=== PATIENT | female | born 1975 | race Caucasian/White ===

== ENCOUNTER 2017-05-08 13:17 | Emergency (ER) | payer SELFPAY ==
[~2017-05-08] VITALS: Ht 177.8 cm; Wt 72.0 kg
[2017-05-08] MEDS ORDERED: SODIUM CHLORIDE FLUSH 10ML SYR IVF ONE (14:00)
[2017-05-08] MEDS ORDERED: SODIUM CHLORIDE 0.9% 1,000ML IVBOLUS ONE (14:00)
[2017-05-08] MEDS ORDERED: ONDANSETRON 2MG/ML, 2ML IVPush ONE (14:00)
[2017-05-08 14:02] LABS: HEMATOCRIT 50.3 % (34.6-47.8); HEMOGLOBIN 17.4 g/dL (11.7-16.4); WHITE BLOOD COUNT 7.6 x10^3/uL (3.4-10)
[2017-05-08 14:13] LABS: ASPARTATE AMINO TRANSFERASE 27 U/L (15-37); BLOOD UREA NITROGEN 10 mg/dL (7-18)
[2017-05-08] MEDS ORDERED: ONDANSETRON 2MG/ML, 2ML ONE (14:13)
[2017-05-08 15:35] VITALS: BP 148/89
== END 2017-05-08 15:39 | disposition left against medical advice (07) ==
LOC: ED 15:30
DX: E86.0 Dehydration (principal); R11.2 Nausea with vomiting, unspecified; Z88.0 Allergy status to penicillin; Z88.6 Allergy status to analgesic agent
CPT/HCPCS: 36415; 80053; 81001; 83690; 84703; 85025; 87086; 96361; 96374; 99284; J2405; J7030

== ENCOUNTER 2017-06-03 17:29 | Inpatient (IN) | payer MEDICAID, OTHER ==
[~2017-06-03] VITALS: Ht 177.8 cm; Wt 75.3 kg
[2017-06-03] MEDS ORDERED: ALBUTEROL SULFATE 2.5 MG/3 ML ONE (17:56)
[2017-06-03] MEDS ORDERED: SODIUM CHLORIDE FLUSH 10ML SYR IVF ONE (18:00)
[2017-06-03] MEDS ORDERED: ALBUTEROL SULFATE 2.5 MG/3 ML NPPB ONE (18:00)
[2017-06-03 18:10] LABS: HEMATOCRIT 45.1 % (34.6-47.8); HEMOGLOBIN 15.3 g/dL (11.7-16.4); WHITE BLOOD COUNT 13.4 x10^3/uL (3.4-10)
[2017-06-03 18:23] LABS: BLOOD UREA NITROGEN 5 mg/dL (7-18)
[2017-06-03] MEDS ORDERED: AZITHROMYCIN 500 MG in SODIUM CHLORIDE 0.9% 250 ML IVPB ONE (18:30)
[2017-06-03] MEDS ORDERED: CEFTRIAXONE PMX 1GM/50ML 50 ML IVPB ONE (18:30)
[2017-06-03 18:44] LABS: IS PT STATUS REG ER OR PRE ER? YES
[2017-06-03] MEDS ORDERED: CEFTRIAXONE PMX 1GM/50ML 50 ML ONE (18:47)
[2017-06-03] MEDS ORDERED: ONDANSETRON 2MG/ML, 2ML ONE (19:44)
[2017-06-03] MEDS ORDERED: ONDANSETRON 2MG/ML, 2ML IVPush ONE (20:00)
[2017-06-03] MEDS ORDERED: OMNIPAQUE 350 MG/ML, 100ML BOTTLE ONE (20:17)
[2017-06-03] MEDS ORDERED: SODIUM CHLORIDE 0.9% 1,000 ML IV ONE (20:42)
[2017-06-03] MEDS ORDERED: morphine SULFATE 10 MG/ML, 1ML IVPush PRN (21:00)
[2017-06-03] MEDS ORDERED: NS + 20MEQ KCL 1,000 ML IV SCH (21:00)
[2017-06-03] MEDS ORDERED: POLYETHYLENE GLYCOL 17 GM PACKET PO PRN (21:00)
[2017-06-03] MEDS ORDERED: ACETAMINOPHEN 325 MG TABLET PO PRN (21:00)
[2017-06-03] MEDS ORDERED: SODIUM CHLORIDE FLUSH 10ML SYR IVF PRN (21:00)
[2017-06-03] MEDS ORDERED: DOCUSATE 100 MG CAPSULE PO PRN (21:00)
[2017-06-03] MEDS ORDERED: HYDROcodone/APAP 5/325 TABLET PO PRN (21:00)
[2017-06-03] MEDS: CEFTRIAXONE 1,000 MG in SODIUM CHLORIDE 0.9% 50 ML IV SCH (21:11)
[2017-06-03] MEDS ORDERED: GABA600T2 PO (22:07)
[2017-06-03 22:46] VITALS: BP 119/76
[2017-06-03 22:50] VITALS: BP 119/76
[2017-06-03] MEDS: NICOTINE 14MG/24 HR PATCH.TD24 TD SCH (23:30)
[2017-06-03] MEDS: DOXYCYCLINE 100 MG in DEXTROSE 5% 250 ML IV SCH (23:38)
[2017-06-03] MEDS: GUAIFENESIN/DM 200-20MG, 10ML UDC PO PRN (23:39)
[2017-06-03] MEDS: ENOXAPARIN 40 MG/0.4 ML SQ SCH (23:39)
[2017-06-04] MEDS ORDERED: ALBUTEROL SULFATE 2.5 MG/3 ML NPPB PRN (00:30)
[2017-06-04] MEDS: methylPREDNISolone SOD SUCC 125 MG/2 ML IVPush SCH ×3 (02:17→18:38)
[2017-06-04 02:27] LABS: IS PT STATUS REG ER OR PRE ER? NO
[2017-06-04 03:21] VITALS: BP 121/82
[2017-06-04 06:35] LABS: HEMATOCRIT 40.8 % (34.6-47.8)
[2017-06-04 06:50] LABS: BLOOD UREA NITROGEN 4 mg/dL (7-18)
[2017-06-04 06:54] LABS: IS PT STATUS REG ER OR PRE ER? NO
[2017-06-04] MEDS: ALBUTEROL/IPRATROPIUM 2.5MG/0.5MG, 3 ML NPPB SCH ×4 (07:20→20:35)
[2017-06-04 08:17] VITALS: BP 119/80
[2017-06-04] MEDS: ASPIRIN 325 MG TABLET EC PO SCH (10:22)
[2017-06-04] MEDS: DOXYCYCLINE 100 MG in DEXTROSE 5% 250 ML IV SCH ×2 (11:52→23:09)
[2017-06-04 13:04] VITALS: BP 134/92
[2017-06-04] MEDS ORDERED: FUROSEMIDE 20 MG/2 ML IV ONE (16:00)
[2017-06-04 17:28] LABS: RAPID INFLUENZA A Negative (Negative); RAPID INFLUENZA B Negative (Negative)
[2017-06-04 18:09] VITALS: BP 134/89
[2017-06-04] MEDS: GUAIFENESIN/DM 200-20MG, 10ML UDC PO PRN (18:42)
[2017-06-04] MEDS: ONDANSETRON 2MG/ML, 2ML IVPush PRN (18:42)
[2017-06-04 19:29] VITALS: BP 117/80
[2017-06-04] MEDS: CEFTRIAXONE 1,000 MG in SODIUM CHLORIDE 0.9% 50 ML IV SCH (21:14)
[2017-06-04] MEDS: NICOTINE 14MG/24 HR PATCH.TD24 TD SCH (23:09)
[2017-06-04] MEDS: ENOXAPARIN 40 MG/0.4 ML SQ SCH (23:09)
[2017-06-05 00:34] VITALS: BP 134/87
[2017-06-05] MEDS: ONDANSETRON 2MG/ML, 2ML IVPush PRN ×3 (00:36→23:59)
[2017-06-05] MEDS: methylPREDNISolone SOD SUCC 125 MG/2 ML IVPush SCH ×3 (01:29→21:26)
[2017-06-05 05:30] LABS: HEMATOCRIT 39.6 % (34.6-47.8); HEMOGLOBIN 13.5 g/dL (11.7-16.4); WHITE BLOOD COUNT 15.2 x10^3/uL (3.4-10)
[2017-06-05 05:51] LABS: BLOOD UREA NITROGEN 7 mg/dL (7-18)
[2017-06-05] MEDS: ALBUTEROL/IPRATROPIUM 2.5MG/0.5MG, 3 ML NPPB SCH ×4 (07:00→19:21)
[2017-06-05 08:41] VITALS: BP 125/81
[2017-06-05] MEDS: ASPIRIN 325 MG TABLET EC PO SCH (08:53)
[2017-06-05] MEDS: DOXYCYCLINE 100 MG in DEXTROSE 5% 250 ML IV SCH ×2 (11:30→23:59)
[2017-06-05 13:20] VITALS: BP 126/83
[2017-06-05] MEDS: GUAIFENESIN/DM 200-20MG, 10ML UDC PO PRN ×2 (15:18→21:38)
[2017-06-05 21:15] VITALS: BP 142/87
[2017-06-05] MEDS: GABAPENTIN 300 MG CAPSULE PO SCH (21:26)
[2017-06-05] MEDS: ENOXAPARIN 40 MG/0.4 ML SQ SCH (21:27)
[2017-06-05] MEDS: CEFTRIAXONE PMX 1GM/50ML 50 ML IV SCH (21:27)
[2017-06-05] MEDS: NICOTINE 14MG/24 HR PATCH.TD24 TD SCH (22:59)
[2017-06-06 01:41] VITALS: BP 131/86
[2017-06-06] MEDS: GUAIFENESIN/DM 200-20MG, 10ML UDC PO PRN ×2 (04:20→20:59)
[2017-06-06 04:31] LABS: HEMATOCRIT 40.6 % (34.6-47.8); HEMOGLOBIN 13.6 g/dL (11.7-16.4); WHITE BLOOD COUNT 12.5 x10^3/uL (3.4-10)
[2017-06-06 04:38] LABS: BLOOD UREA NITROGEN 12 mg/dL (7-18)
[2017-06-06 07:11] VITALS: BP 145/89
[2017-06-06] MEDS: ALBUTEROL/IPRATROPIUM 2.5MG/0.5MG, 3 ML NPPB SCH ×4 (07:14→19:32)
[2017-06-06] MEDS: GABAPENTIN 300 MG CAPSULE PO SCH ×3 (08:26→20:59)
[2017-06-06] MEDS: ONDANSETRON 2MG/ML, 2ML IVPush PRN ×2 (08:26→23:55)
[2017-06-06] MEDS: ASPIRIN 325 MG TABLET EC PO SCH (08:26)
[2017-06-06] MEDS: methylPREDNISolone SOD SUCC 125 MG/2 ML IVPush SCH ×2 (08:26→21:00)
[2017-06-06 12:46] VITALS: BP 130/84
[2017-06-06] MEDS: DOXYCYCLINE 100 MG in DEXTROSE 5% 250 ML IV SCH ×2 (13:08→23:55)
[2017-06-06] MEDS: CEFTRIAXONE PMX 1GM/50ML 50 ML IV SCH (20:59)
[2017-06-06] MEDS: ENOXAPARIN 40 MG/0.4 ML SQ SCH (21:00)
[2017-06-06 21:23] VITALS: BP 130/84
[2017-06-06] MEDS: NICOTINE 14MG/24 HR PATCH.TD24 TD SCH (21:53)
[2017-06-07 00:18] VITALS: BP 131/79
[2017-06-07 05:10] LABS: BLOOD UREA NITROGEN 13 mg/dL (7-18)
[2017-06-07 05:20] LABS: HEMATOCRIT 40.5 % (34.6-47.8); HEMOGLOBIN 13.6 g/dL (11.7-16.4); WHITE BLOOD COUNT 8.2 x10^3/uL (3.4-10)
[2017-06-07] MEDS: ALBUTEROL/IPRATROPIUM 2.5MG/0.5MG, 3 ML NPPB SCH ×3 (07:00→14:46)
[2017-06-07 07:10] VITALS: BP 152/98
[2017-06-07] MEDS: ASPIRIN 325 MG TABLET EC PO SCH (09:43)
[2017-06-07] MEDS: GABAPENTIN 300 MG CAPSULE PO SCH (09:44)
[2017-06-07] MEDS: DOXYCYCLINE 100 MG in DEXTROSE 5% 250 ML IV SCH (11:47)
[2017-06-07 13:35] VITALS: BP 144/89
[2017-06-07] MEDS: GUAIFENESIN/DM 200-20MG, 10ML UDC PO PRN (13:40)
[2017-06-07] MEDS ORDERED: PNEUMOCOCCAL VACC.PER PHARMACY IM ONE (14:30)
[2017-06-07] MEDS ORDERED: PNEUMOCOCCAL 23 VACCINE IM-VACC ONE (14:30)
[2017-06-08] MEDS ORDERED: methylPREDNISolone SOD SUCC 125 MG/2 ML IVPush SCH (09:00)
[2017-06-10 13:07] LABS: CHLAMYDIA PNEUMONIAE IGM 1:40 (Neg:<1:10)
[2017-06-10 16:37] LABS: ANA SCREEN POSITIVE (Negative); ANA TITER 1:40
== END 2017-06-07 17:00 | disposition left against medical advice (07) | DRG 871 ==
LOC: SUATTDRO 20:49 → ED 21:11 → EDIP 21:30 → 4NOR 22:35 → 3NW 06-04 17:45
PROVIDERS: ADMIT Family Medicine; ATTEND Family Medicine
DX: A41.9 Sepsis, unspecified organism (principal); J96.01 Acute respiratory failure with hypoxia; J18.0 Bronchopneumonia, unspecified organism; I27.21 Secondary pulmonary arterial hypertension; E44.0 Moderate protein-calorie malnutrition; F17.210 Nicotine dependence, cigarettes, uncomplicated; G25.81 Restless legs syndrome; G47.33 Obstructive sleep apnea (adult) (pediatric); Z88.0 Allergy status to penicillin; Z88.8 Allergy status to other drugs, medicaments and biological substances; Z71.6 Tobacco abuse counseling; Z53.21 Procedure and treatment not carried out due to patient leaving prior to being seen by health care provider
CPT/HCPCS: 36415; 71010; 71275; 80048; 80061; 80076; 82040; 82164; 83605; 83880; 84145; 84484; 85025; 85610; 85651; 85730; 86038; 86039; 86140; 86631; 86632; 86635; 86738; 87040; 87400; 93005; 93306; 94640; 96365; 96366; 96368; 96375; J0456; J0696; J1650; J2405; J3480; J7060; J7613; J7620; Q9967; J1940; J2930; J7050

== ENCOUNTER 2017-11-04 17:15 | Emergency (ER) | payer MEDICAID ==
[~2017-11-04] VITALS: Ht 177.8 cm; Wt 72.3 kg
[~2017-11-04 17:15] MED LIST: GABA600T2 PO
[2017-11-04] MEDS ORDERED: SODIUM CHLORIDE 0.9% 1,000ML IVBOLUS ONE (18:00)
[2017-11-04] MEDS ORDERED: PROCHLORPERAZINE 5 MG/ML, 2ML IVPush ONE (18:00)
[2017-11-04] MEDS ORDERED: PROCHLORPERAZINE 5 MG/ML, 2ML ONE (18:19)
[2017-11-04] MEDS ORDERED: PROMETHAZINE 25 MG/ML, 1ML ONE (18:46)
[2017-11-04] MEDS ORDERED: OXYcodone/APAP 10/325MG TABLET ONE (18:46)
[2017-11-04] MEDS ORDERED: OXYcodone/APAP 10/325MG TABLET PO ONE (19:00)
[2017-11-04] MEDS ORDERED: PROMETHAZINE 25 MG/ML, 1ML IM ONE (19:00)
[2017-11-04 19:18] VITALS: BP 133/92
== END 2017-11-04 19:22 | disposition home or self-care (01) ==
LOC: ED 18:55
DX: G43.909 Migraine, unspecified, not intractable, without status migrainosus (principal); F17.200 Nicotine dependence, unspecified, uncomplicated
CPT/HCPCS: 96372; 99283; J2550

== ENCOUNTER 2019-03-22 18:57 | Emergency (ER) | payer MEDICAID ==
[~2019-03-22] VITALS: Ht 177.8 cm; Wt 84.0 kg
[2019-03-22 20:24] VITALS: BP 130/68
== END 2019-03-22 20:45 | disposition home or self-care (01) ==
LOC: ED 20:39
DX: G43.009 Migraine without aura, not intractable, without status migrainosus (principal); F17.200 Nicotine dependence, unspecified, uncomplicated
CPT/HCPCS: 96372; 99283; J1885; Q0162; Q0163

== ENCOUNTER 2019-09-19 10:04 | Emergency (ER) | payer MEDICAID, OTHER ==
[~2019-09-19] VITALS: Ht 177.8 cm; Wt 84.7 kg
[~2019-09-19 10:04] MED LIST changes: -GABA600T2 PO; +GABA600T7 PO
[2019-09-19 10:05] VITALS: BP 143/93
== END 2019-09-19 11:19 | disposition home or self-care (01) ==
LOC: ED 10:49
DX: M19.90 Unspecified osteoarthritis, unspecified site (principal); M54.5 Low back pain; G43.909 Migraine, unspecified, not intractable, without status migrainosus
CPT/HCPCS: 99282